=== PATIENT | female | born 1955 | race Caucasian/White ===

== ENCOUNTER → 2017-03-05 | Day surgery (SDC) | payer BC ==
[~2017-03-05] VITALS: Ht 162.6 cm; Wt 82.9 kg
[~2017-03-05] MED LIST: ASPIRIN LO-DOSE81 MG PO; BIOTIN10000 MC1 PO; CO Q-10200 MG PO; FENOFIBRIC ACI135 MG PO; FOLIC ACID0.8 M1 PO; LEVOTHYROXINE75 MCG PO; NORCO 5-325 MG1 TAB PO; TAGAMET HB200 MG PO; VYTORIN 10-401 EACH PO; [UNRECOGNIZED DRUG - OTHER] PO
== END ==
LOC: GPOC 01-08 08:00 → GEND 01-12 07:30 → GSIP 01-12 07:30 → GOPP 01-12 07:30 → GPOC 01-12 08:30 → GEND 07:08 → GPOC 08:30
PROC: 0DB68ZX Excision of Stomach, Via Natural or Artificial Opening Endoscopic, Diagnostic (ICD-10-PCS; principal; 2017-03-05)
PROC: 0DBN8ZX Excision of Sigmoid Colon, Via Natural or Artificial Opening Endoscopic, Diagnostic (ICD-10-PCS; 2017-03-05)
DX: Z12.11 Encounter for screening for malignant neoplasm of colon (principal); K29.70 Gastritis, unspecified, without bleeding; K44.9 Diaphragmatic hernia without obstruction or gangrene; D12.5 Benign neoplasm of sigmoid colon; K57.30 Diverticulosis of large intestine without perforation or abscess without bleeding; K64.4 Residual hemorrhoidal skin tags; K64.8 Other hemorrhoids; I10 Essential (primary) hypertension; K21.9 Gastro-esophageal reflux disease without esophagitis; E78.5 Hyperlipidemia, unspecified; Z88.5 Allergy status to narcotic agent; Z88.6 Allergy status to analgesic agent
CPT/HCPCS: J2001; J2405; J7030